=== PATIENT | male | born 1960 | race Caucasian/White ===

== ENCOUNTER 2016-09-24 15:14 | Emergency (ER) | payer OTHER ==
[2016-09-24 15:31] VITALS: BP 145/66
--- OUTSIDE RECORDS SUMMARY | 2016-09-24 15:41 | XMS REPORT | Continuity of Care Document ---
:1960 Author Organization [employer] [place] [address] Care Team Providers Name Role Phone Jared Antoine Primary Care Provider [phone] Source Comments This disclosure is being made pursuant to the [employer] program and maynot contain all information available regarding this patient.[facility] Active Allergies and Adverse Reactions No Known Allergies Current Medications Be aware that medications may not be up to date as of this document. Alwaysverify current medications with the patient. Prescription Sig. Disp. Refills Start Date End Date Status Insulin Lispro, Inject 20-30 Active Human, (HUMALOG Units into the KWIKPEN) 100 skin 2 (two) UNIT/ML SOPN times daily. injection - pen aspirin 81 MG EC Take 81 mg by Active tablet mouth daily. albuterol (PROAIR Inhale 2 puffs Active HFA;PROVENTIL into the lungs HFA;VENTOLIN HFA) daily as 108 (90 BASE) needed for MCG/ACT inhaler Wheezing. Insulin Use twice per 100 each 0 05/18/2016 Active Syringe-Needle day. U-100 (INSULIN SYRINGE 1CC/31GX5/16") 31G X 5/16" 1 ML MISC ibuprofen Take 400 mg by Active (ADVIL,MOTRIN) 200 mouth. MG tablet traMADol (ULTRAM) Take 1 tablet 30 tablet 0 06/03/2016 Active 50 MG tablet by mouth daily as needed for Pain. lisinopril TAKE 1 TABLET 28 tablet 0 07/20/2016 Active (PRINIVIL,ZESTRIL) BY MOUTH TWICE 20 MG tablet DAILY LEVEMIR 100 UNIT/ML INJECT 88 50 mL 0 08/04/2016 Active injection - vial UNITS INTO THE SKIN TWICE DAILY glucose blood Patient tests 100 each 2 08/11/2016 Active (FREESTYLE LITE) three times test strip daily budesonide-formoter Inhale 2 puffs 10.2 g 0 08/11/2016 Active ol (SYMBICORT) into the lungs 160-4.5 MCG/ACT 2 (two) times inhaler daily. lisinopril TAKE 1/2 14 tablet 0 08/18/2016 Active (PRINIVIL,ZESTRIL) TABLET BY 40 MG tablet MOUTH TWICE DAILY mometasone-formoter Inhale 2 puffs 13 g 0 08/25/2016 Active ol (DULERA) 100-5 into the lungs MCG/ACT AERO 2 (two) times inhaler daily. fenofibrate TAKE 1 30 tablet 0 09/21/2016 Active (TRICOR) 145 MG TABLET(145 MG) tablet BY MOUTH EVERY DAY metformin TAKE 1 TABLET 60 tablet 0 09/24/2016 Active (GLUCOPHAGE) 1000 BY MOUTH TWICE MG tablet DAILY WITH MEALS atorvastatin TAKE 1 TABLET 30 tablet 0 09/24/2016 Active (LIPITOR) 20 MG BY MOUTH EVERY tablet DAY metoprolol tartrate TAKE 1 TABLET 30 tablet 0 09/24/2016 Active (LOPRESSOR) 100 MG BY MOUTH EVERY tablet DAY atorvastatin Take 1 tablet 30 tablet 0 08/11/2016 09/23/2016 Discontinued (LIPITOR) 20 MG by mouth tablet daily. metformin Take 1 tablet 60 tablet 0 08/11/2016 09/23/2016 Discontinued (GLUCOPHAGE) 1000 by mouth 2 MG tablet (two) times daily with meals. metoprolol tartrate TAKE 1 TABLET 30 tablet 0 08/18/2016 09/23/2016 Discontinued (LOPRESSOR) 100 MG BY MOUTH EVERY tablet DAY fenofibrate TAKE 1 30 tablet 0 08/18/2016 09/21/2016 Discontinued (TRICOR) 145 MG TABLET(145 MG) tablet BY MOUTH EVERY DAY Active Problems Problem Noted Date Type 2 diabetes mellitus (HCC) 04/27/2016 Chronic obstructive pulmonary disease (HCC) 04/27/2016 Benign essential HTN 04/27/2016 Type 2 diabetes mellitus with diabetic polyneuropathy, with long-term 2015 current use of insulin (HCC) Most Recent Encounters Date Type Specialty Providers Description 09/23/2016 Refill Family Medicine Jared Antoine MD 09/21/2016 Refill Family Medicine Jared Antoine MD 08/26/2016 Scanned Document Family Jared Menezes MD 08/25/2016 Refill Family Medicine Vi Cardozo RN 08/20/2016 Scanned Document Family Jared Menezes MD 08/19/2016 Scanned Document Family Jared Menezes MD 08/19/2016 Scanned Document Family Jared Menezes MD 08/18/2016 Refill Family Jared Menezes MD 08/13/2016 Telephone Family Medicine Ignacia Taylor, Paperwork [employer] 08/11/2016 Refill Family Medicine Ignacia Taylor, [employer] 08/03/2016 Refill Family Medicine Jared Antoine MD Type 2 diabetes mellitus with other specified complication (HCC) 07/31/2016 Scanned Document Family Jared Menezes MD 07/31/2016 Telephone Family Medicine Vi Cardozo Fyi RN 07/18/2016 Refill Family Jared Menezes MD 07/16/2016 Refill Family Medicine Jared Antoine MD 07/16/2016 Scanned Document Family Jared Menezes MD 07/13/2016 Scanned Document Family Jared Menezes MD 07/13/2016 Refill Family Medicine Jared Antoine MD Immunizations Name Dates Previously Given Next Due INFLUENZA, INACTIVATED, QUADRIVALENT, 3 YEARS AND 03/05/2016 older, single dose syringe/vial Social History Tobacco Use Types Packs/Day Years Used Date Former Smoker 2 6 Smokeless Tobacco: Never Used Alcohol Use Drinks/Week oz/Week Comments No Last Filed Vital Signs Vital Sign Reading Time Taken Blood Pressure 124/82 06/03/2016 2:50 PM [facility] Pulse 80 06/03/2016 2:50 PM [facility] Temperature 36.1 C (97 F) 06/03/2016 2:50 PM [facility] Respiratory Rate 18 06/03/2016 2:50 PM [facility] Height 1.83 m (6' 0.05") 06/03/2016 2:50 PM [facility] Weight 152.862 kg (337 lb) 06/03/2016 2:50 PM [facility] Body Mass Index 45.65 06/03/2016 2:50 PM [facility] Oxygen Saturation - - Plan of Care Patient Goal Type Goal Blood Pressure Blood Pressure below 140/90 Result Component HEMOGLOBIN A1C below 7.0 Health Maintenance Due Date Last Done Comments Hepatitis C Screening 1979 Pneumococcal Medium Risk 19-64 yo (1 of 1 - PPSV23) 1980 Tetanus/Pertussis (1 - Tdap) 1980 Well Adult Visit 2011 LAB-HgA1C 10/26/2016 04/27/2016 Lab-Lipids 10/30/2016 05/01/2016 Foot Exam 04/27/2017 04/27/2016 Lab-Urine Microalbumin 05/01/2017 05/01/2016 Eye (Ophthalmology) Exam 05/16/2018 05/16/2016 Colonoscopy 04/10/2024 04/10/2014 Influenza Immunization Completed 03/05/2016 Results from Last 3 Months Not on file
--- OUTSIDE RECORDS SUMMARY | 2016-09-24 15:42 | XMS REPORT | Continuity of Care Document ---
:1960 Author Organization [facility] ([facility]) Address [address] [place] [address] Phone [phone] Care Team Providers Name Role Phone Jared Antoine Primary Care Provider [phone] Source Comments This disclosure is being made pursuant to the Care Everywhere program, applicable federal and state laws, and may not contain all informaitonavailable regarding this patient.[facility] ([facility]) Active Allergies and Adverse Reactions Allergen Noted Date Severity Reactions Comments Sulfamethoxazole 07/03/2016 Nausea & Vomiting,Angioedema,Rash Current Medications Prescription Sig. Disp. Refills Start End Status Date Date metFORMIN 1,000 mg Take 1,000 mg by Active tablet mouth 2 times daily with meals. fenofibrate 145 mg Take 145 mg by Active tablet mouth daily. budesonide-formoter Use 2 Puffs by Active ol (SYMBICORT) inhalation 2 times 160-4.5 daily. mcg/Actuation inhaler albuterol 90 Use 2 Puffs by Active mcg/Actuation inhalation every 4 inhaler hours as needed. gabapentin 300 mg Take 2 capsules 90 capsule 3 Active capsule (600 mg total) by 7 mouth 3 times daily. SUPPLY FREESTYLE Patient tests Active LITE test strips three times daily 7 metoPROLol tartrate Take 100 mg by Active 100 mg tablet mouth daily. docusate 100 mg Take 1 capsule 60 capsule 0 Active capsule (100 mg total) by 7 mouth 2 times daily as needed. aspirin 325 mg Take 1 tablet (325 42 tablet 0 Active tablet mg total) by mouth 7 daily. acetaminophen 325 Take 2 tablets 80 tablet 0 Active mg tablet (650 mg total) by 7 mouth every 4 hours as needed. cyclobenzaprine 10 Take 1 tablet (10 40 tablet 0 Active mg tablet mg total) by mouth 7 every 8 hours as needed. HYDROmorphone 2 mg Take 1-2 tablets 80 tablet 0 Active tablet (2-4 mg total) by 7 mouth every 4 hours as needed. ertapenem (INVanz) Inject 1,000 mg 7 Each 5 Active 1,000 mg IV bag intravenously 7 every 24 hours. furosemide 40 mg Take 1 tablet (40 30 tablet 0 Active tablet mg total) by mouth 7 daily. insulin detemir Inject 40 Units 10 mL 0 Active (LEVEMIR) 100 subcutaneously 2 7 unit/mL injection times daily. vial insulin lispro Inject 12 Units 10 mL 0 Active (HumaLOG) 100 subcutaneously 3 7 unit/mL injection times daily with vial meals. insulin lispro Inject 2-10 Units 10 mL 0 Active (HumaLOG) 100 subcutaneously 3 7 unit/mL injection times daily with vial meals. Give based on glucose results. GLUCOSE LEVEL (mg/dl): 150-199 give 2 units, 200-249 give 4 units, 250-299 give 6 units, 300-349 give 8 units,350-399 give 10 units, 400 or greater - Call Physician. sodium chloride 0.9 Inject 10 mL 500 mL 1 Active % injection syringe intravenously as 7 needed for Other (For PICC line flush per Protocol (Flush PICC weekly if not accessed) ). sodium chloride 0.9 Inject 20 mL 500 mL 1 Active % injection syringe intravenously as 7 needed for Other (For PICC line flush with blood draws and TPN per Protocol). DAPTOmycin Inject 900 mg 7 Each 5 Active (CUBICIN) 500 mg intravenously 7 injection once. atorvastatin 20 mg Take 20 mg by Discontinued tablet mouth every 017 evening. lisinopril 20 mg Take 20 mg by Discontinued tablet mouth 2 times 017 daily. metoPROLol Take 100 mg by Discontinued succinate 100 mg XL mouth daily. 017 tablet insulin detemir Inject 88 Units Discontinued (LEVEMIR) 100 subcutaneously 2 017 unit/mL injection times daily. vial aspirin 325 mg Take 1 tablet (325 42 tablet 0 Discontinued tablet mg total) by mouth 7 017 daily. docusate 100 mg Take 1 capsule 60 capsule 0 Discontinued capsule (100 mg total) by 7 017 mouth 2 times daily as needed. morpHINE 15 mg CR Take 1 tablet (15 60 tablet 0 Discontinued tablet mg total) by mouth 7 017 2 times daily. hydrOXYzine HCl 25 Take 1-2 tablets 80 tablet 1 Discontinued mg tablet (25-50 mg total) 7 017 by mouth every 4 hours as needed. oxyCODONE-acetamino Take 1 tablet by 40 tablet 0 Discontinued phen 5-325 mg per mouth every 6 7 017 tablet hours as needed for Pain. Do NOT exceed 4000 mg of acetaminophen per 24 hours. cephalexin 500 mg Take 1 capsule 40 capsule 0 capsule (500 mg total) by 7 017 mouth 4 times daily for 10 days. HYDROcodone-acetami Take 1-2 tablets 60 tablet 0 Discontinued nophen 5-325 mg per by mouth every 6 7 017 tablet hours as needed for Pain. Earliest Fill Date: 08/25/16 cephalexin 500 mg Take 1 capsule 40 capsule 0 Discontinued capsule (500 mg total) by 7 017 mouth 4 times daily for 10 days. For 10 days. oxyCODONE-acetamino Take 1-2 tablets 60 tablet 0 Discontinued phen 5-325 mg per by mouth every 4 7 017 tablet hours as needed for Pain. Do NOT exceed 4000 mg of acetaminophen per 24 hours. hydrOXYzine pamoate Take 1-2 capsules 80 capsule 1 Discontinued 25 mg capsule (25-50 mg total) 7 017 by mouth every 4 hours as needed for muscle spasms docusate 100 mg Take 1 capsule 60 capsule 0 Discontinued capsule (100 mg total) by 7 017 mouth 2 times daily as needed. cephalexin 500 mg Take 1 capsule 56 capsule 0 Discontinued capsule (500 mg total) by 7 017 mouth 4 times daily for 14 days (until gone) HYDROcodone-acetami Take 1-2 tablets 60 tablet 0 Discontinued nophen 5-325 mg per by mouth every 6 7 017 tablet hours as needed for Pain. aspirin 81 mg EC Take 243 mg by Discontinued tablet mouth daily. 017 Patient is using 3 x 81 mg EC aspirin daily insulin lispro Inject Discontinued (HumaLOG) 100 subcutaneously 3 017 unit/mL injection times daily before vial meals. Sliding scale, starting at FBS 150 for every 20 patient takes 2 units of humalog (FBS 180=4 units) lisinopril 40 mg Take 20 mg by Discontinued tablet mouth 2 times 017 daily. doxycycline hyclate Take 1 capsule 84 capsule 0 Discontinued 100 mg capsule (100 mg total) by 7 017 mouth every 12 hours. DAPTOmycin Inject 900 mg 7 Each 5 Discontinued (CUBICIN) 500 mg intravenously 7 017 injection once. DAPTOmycin Inject 900 mg 7 Each 5 Discontinued (CUBICIN) 500 mg intravenously 7 017 injection once. Active Problems Problem Noted Date Infection of right below knee amputation 09/18/2016 Acute kidney injury 09/15/2016 Hyperkalemia 09/15/2016 Post-operative infection 09/11/2016 Hx of right BKA 08/14/2016 Acute blood loss anemia 07/22/2016 Charcot foot due to diabetes mellitus 07/21/2016 Musculoskeletal leg pain 07/21/2016 Essential hypertension 07/14/2016 COPD (chronic obstructive pulmonary disease) 07/14/2016 Foot ulcer due to secondary DM 05/24/2016 Acute osteomyelitis of right foot 05/24/2016 Type 2 diabetes mellitus 05/24/2016 Morbid obesity 05/24/2016 Degeneration of intervertebral disc, site unspecified 09/05/1999 Most Recent Encounters Date Type Specialty Providers Description 09/22/2016 Telephone Breezy Rosario MD 09/22/2016 Telephone Breezy Rosario Chief Comp: Felicity Armendariz MD 09/22/2016 Orders/Notes Eusebio Infectious Arlene Rose Disease 09/21/2016 Nurse Triage Care Coordination Sherie Hoffman Chief Comp: VALENTINE Navarrete sports psychologist Follow-up Call 09/21/2016 Telephone Eusebio Infectious Arlene Rose, Dx: Chronic Disease osteomyelitis of right tibia (Primary Dx) 09/16/2016 Surgery General Surgery DANNY Guillen/DEBRIDMAIDA Marte MD T KNEE 09/15/2016 Anesthesia Event General Surgery Chandler Cabrera R, VALVE INSERTER 09/15/2016 Surgery Cardiology Jules Xavier Picc Reposition MD Raghav 09/14/2016 Office Visit Breezy Rosario Chief Comp: Patient Marcello, MD Reported Reason For Visit 09/14/2016 Anesthesia Event General Surgery Breezy Gale G, VALVE INSERTER 09/14/2016 Surgery General Surgery Breeyz Key IRRIGATION/DEBRIDEMEN MD Brian Armendariz LOWER LEG 09/11/2016 [facility] Breezy Key Dx: Post-operative - Encounter Inpatient - Adult MD Marcello infection (Primary 09/18/2016 Jules Xaiver Dx) MD Mindy Avilez Heather R, MD 09/11/2016 Office Visit Breezy Rosario Dx: Post-operative MD Marcello infection (Primary Dx) 09/11/2016 Telephone Breezy Rosario MD 09/09/2016 Telephone Patient Services Sheldon Celaya Chief Comp: Martine Silva RN Only 09/09/2016 Telephone Breezy Rosario Dx: Pain in joint, MD Marcello ankle and foot, unspecified laterality (Primary Dx) 09/07/2016 Nurse Triage General [facility] Robert, Chief Comp: IP Inpatient - Adult Sarah Marte RNsports psychologist Follow-up Call 09/07/2016 Pharmacy Visit 09/05/2016 Pharmacy Visit 09/04/2016 [facility] Breezy Key Dx: Hx of right BKA - Encounter Inpatient - Adult MD Marcello (Primary Dx) 09/05/2016 09/04/2016 Anesthesia Event General Surgery Tea Coleman MD 09/04/2016 Surgery General Surgery Breezy Key AMPUTATION LEG Marcello, REVISION 09/03/2016 Office Visit Breezy Rosario Dx: Hx of right MIKAL Armendariz MD (Primary Dx) 08/25/2016 Refill Breezy Rosario Dx: Pain in joint, MD Marcello ankle and foot, unspecified laterality (Primary Dx) 08/19/2016 Office Visit Breezy Rosario Dx: Status post below MD Marcello knee amputation of right lower extremity (Primary Dx) 08/19/2016 Telephone Breezy Rosario MD 08/18/2016 Nurse Triage Patient Services Lorenzo Mi Chief Comp: Patient L, RN Concern 08/17/2016 Orders/Notes Orthopaedic Gina Burns, Dx: Hx of right BKA SACHA (Primary Dx) 08/14/2016 Office Visit Dermatology Brandon Sainz, Dx: Hyperkeratosis of MD skin 08/14/2016 Office Visit Orthopaedic Breezy Key Dx: Muscle spasm MD Marcello (Primary Dx) Gina Burns PA-C 08/03/2016 Telephone Breezy Rosario MD 07/25/2016 Pharmacy Visit 07/21/2016 [facility] Breezy Key Dx: Musculoskeletal - Encounter Inpatient - Adult MD Marcello leg pain, right 07/25/2016 (Primary Dx) 07/21/2016 Surgery General Surgery Breezy Key AMPUTATION LEG BELOW MD Marcello KNEE 07/14/2016 Office Visit Internal Medicine - Default, Other Dx: Morbid obesity Specialty Billg - Defo due to excess Velur, calories (Primary Dx) MD Noemi ([id number]), Msc Surg Co-Managemnt Cl 07/07/2016 Telephone Breezy Rosario MD 07/07/2016 Orders/Notes Orthopaedic Bruno Quintanilla Dx: Musculoskeletal MD Meghan leg pain, right (Primary Dx) 07/07/2016 Telephone Breezy Rosario Chief Comp: Patient Marcello, MD Concern 07/03/2016 [facility] Anesthesiology [facility], Dx: Diabetes Encounter Layla Pineda MD mellitus, insulin dependent (IDDM), controlled (Primary Dx) 07/03/2016 Office Visit Breezy Rosario Dx: Foot ulcer, right MD Marcello (Primary Dx) 07/03/2016 Anesthesia Event General Surgery Avi Guido Immunizations Name Dates Previously Given Next Due Pneumococcal Polysaccharide, PPSV23 (Pneumovax 23) 05/25/2016 Social History Tobacco Use Types Packs/Day Years Used Date Former Smoker Cigarettes 2 30 Quit: 05/05/2010 Smokeless Tobacco: Never Used Tobacco Cessation:Counseling Given: Yes Comments: Alcohol Use Drinks/Week oz/Week Comments No Last Filed Vital Signs Vital Sign Reading Time Taken Blood Pressure 122/59 09/18/2016 9:00 AM CDT Pulse 84 09/18/2016 9:00 AM CDT Temperature 36.1 C (97 F) 09/18/2016 9:00 AM CDT Respiratory Rate 16 09/18/2016 1:48 PM CDT Height 1.829 m (6') 09/11/2016 6:33 PM [facility] DI[facility]PART[facility] Weight 157.852 kg (348 lb) 09/11/2016 6:33 PM DIRECTOR DIETETICS DEPARTMENT Body Mass Index 47.19 09/11/2016 6:33 PM DIRECTOR DIETETICS DEPARTMENT Oxygen Saturation 94% 09/18/2016 9:00 AM CDT Plan of Care Date Type Specialty Providers Description 10/08/2016 Appointment Orthopaedic Breezy Key, Chief Comp: Patient MD Reported Reason For [address] [place] [address] [phone] (Fax) 10/08/2016 Appointment Med Infectious Disease Arlene Rose MD Chief Comp: Patient [address] [place] [address] Visit [phone] (Fax) Health Maintenance Due Date Last Done Comments HCV Screening 1960 Hepatitis B Vaccine (1 of 3 - Primary Series) 1960 Tdap Vaccine 1972 DIABETIC: Cholesterol 1979 Diabetic: Hdl 1979 Diabetic: Ldl 1979 DIABETIC: Microalbumin 1979 DIABETIC: Triglycerides 1979 MMR Vaccine 1979 Td Vaccine 1979 Colonoscopy 2011 Prostate Cancer Screening 2011 Influenza Vaccine: Seasonal (#1) 02/03/2016 DIABETIC: Foot Exam 05/24/2016 DIABETIC: Retinal Eye Exam 05/24/2016 DIABETIC: Hemoglobin A1C 11/21/2016 05/24/2016 Pneumococcal Vaccine Completed 05/25/2016 Procedures from Last 3 Months Procedure Name Priority Date/Time Associated Comments Diagnosis ABSTRACTED BY Routine 09/17/2016 1:01 PM Post-operative Results for this BILLING STAFF CDT infection procedure are in the results section. ABSTRACTED BY Routine 09/17/2016 12:00 PM Post-operative Results for this BILLING STAFF CDT infection procedure are in the results section. IRRIGATION/DEBRIDEME 09/16/2016 7:30 AM Post-operative NT KNEE CDT infection Case Notes I&D; ossilating saw available for possible revision; wound vac basket available IRRIGATION/DEBRIDEMENT LOWER 09/14/2016 Post-operative LEG 8:45 AM CDT infection ABSTRACTED BY BILLING STAFF Routine 09/09/2016 Hx of right BKA Results for 4:58 PM DIRECTOR DIETETICS DEPARTMENT this procedure are in the results section. AMPUTATION LEG REVISION 09/04/2016 Hx of right BKA 4:00 PM DIRECTOR DIETETICS DEPARTMENT ABSTRACTED BY BILLING STAFF Routine 07/22/2016 Musculoskeletal leg Results for 5:56 AM DIRECTOR DIETETICS DEPARTMENT pain, right this procedure are in the results section. AMPUTATION LEG BELOW KNEE 07/21/2016 Musculoskeletal leg 8:15 AM DIRECTOR DIETETICS DEPARTMENT pain, right Results from Last 3 Months EXTERNAL CREATINE KINASE (CK) (09/22/2016) Component Value Range Ext Creatine Kinase 116 40-200 U/L EXTERNAL SEDIMENTATION RATE, (ESR) (09/21/2016) Component Value Range Ext Sedimentation Rate >120 0-15 MM/HR EXTERNAL TOTAL PROTEIN (09/21/2016) Component Value Range Ext Total Protein 6.7 6.0-8.0 G/DL EXTERNAL HEPATIC PANEL (09/21/2016) Component Value Range Ext AST 18 0-37 U/L Ext ALT 18 0-35 U/L Ext Bilirubin, Direct 0.1 0-0.2 MG/DL Ext Bilirubin, Total 0.3 0.2-1.0 MG/DL Ext ALP 88 40-129 U/L Ext Albumin 3.1(A) 3.4-4.8 G/DL EXTERNAL CHEM 7 (09/21/2016) Component Value Range Ext Glucose 175(A) 65-99 MG/DL Ext Creatinine 1.21 0.7-1.4 MG/DL Ext BUN 21(A) 10-20 MG/DL Ext CO2 30.7 24-32 MEQ/L Ext Chloride 101 95-107 MEQ/L Ext Potassium 4.7 3.5-5.0 MEQ/L Ext Sodium 143 135-145 MEQ/L EXTERNAL CALCULATED GFR (09/21/2016) Component Value Range Ext Calculated GFR 66 EXTERNAL ANION GAP (09/21/2016) Component Value Range Ext Anion Gap 15.0 EXTERNAL CALCIUM (09/21/2016) Component Value Range Ext Calcium 8.7 6-13 MG/DL EXTERNAL C-REACTIVE PROTEIN (CRP) (09/21/2016) Component Value Range Ext CRP 6.1 <0.5 MG/DL EXTERNAL CBC WITH DIFFERENTIAL (09/21/2016) Component Value Range Ext WBC Count 8.9 K/MM3 Ext RBC Count 2.86 M/MM3 Ext Hemoglobin 8.2 G/DL Ext Hematocrit 25.4 % Ext MCV (Mean Corpuscular Volume) 88.8 Ext MCH-Mean Corpuscular Hemoglobin 28.7 Ext MCHC-Mean Corpuscular Hgb Concentration 32.3 Ext Platelet Count 497 1-1001 K/MM3 Ext RDW-Red Cell Distribution Width 13.7 Ext Neutrophils 6100 100-50522 /MM3 Ext Lymphocytes 1600 100-46373 /MM3 Ext Monocytes 800 0-5000 /MM3 Ext Eosinophils 200 0-5000 /MM3 Ext Basophils 100 0-1000 /MM3 Ext % Neutrophils 69.1 % Ext % Lymphs 18.2 % Ext % Monocytes 8.6 % Ext % Eosinophils 2.7 % Ext % Basophils 0.7 % BLOOD GLUCOSE, BEDSIDE (09/18/2016 11:17 AM)Only the most recent of48 resultswithin the time period is included. Component Value Range Glucose, Accu-Chek 166(H) 65-99 mg/dL Specimen Blood, capillary CORTISOL, PLASMA (09/18/2016 9:56 AM)Only the most recent of4 resultswithin the time period is included. Component Value Range Cortisol, Plasma 27.0Comment: g/dL New assay ([employer] Cortisol II) introduced 08/11/2016. Reference ranges: AM (6-10):6.0 - 18.4 g/dL PM (3-5): 2.7 - 10.5 g/dL Timing of sample collection must be taken into account when interpreting results due to cortisol secretion circadian rhythms. Cortisol assay has no cross-reactivity with dexamethasone and low cross- reactivity with prednisone, prednisolone, and 6-methylprednisolone.Patients treated with prednisone, prednisolone, and 6-me thylprednisolone (especially higher doses) may show falsely elevated concentrations of cortisol.Patients with 21-hydroxylase deficiency may have elevated 21-deoxycortisol levels that can give rise to falsely elevated cortisol results.See Laboratory Handbook for more details. ([email or web address].[email or web address]/path_handbook/index.html) Specimen Blood POTASSIUM (09/18/2016 8:52 AM)Only the most recent of7 resultswithin the time period is included. Component Value Range Potassium 4.4 3.5-5.0 mEq/L Specimen Blood CREATININE (09/18/2016 8:52 AM)Only the most recent of5 resultswithin the time period is included. Component Value Range Creatinine 1.0Comment: 0.6-1.2 mg/dL Creatinine switched to enzymatic method on 11/11/2010.GFR equation switched to IDMS-traceable MDRD equation on 11/11/2010. Calculated GFR values are not valid in clinical settings where serum creatinine is changing. Calculated GFR 78 >60 mL/min/1.73 m2 Specimen Blood ADRENOCORTICOTROPIC HORMONE (09/18/2016 8:06 AM) Component Value Range ACTH 30 7-63 pg/mL Specimen Blood DIFFERENTIAL (09/18/2016 3:55 AM)Only the most recent of7 resultswithin the time period is included. Component Value Range % Neutrophils-Auto Diff 68.1 % Neutrophils-Auto Diff 6140 8663-9345 /MM3 % Lymphocytes-Auto Diff 18.7 % Lymphocytes-Auto Diff 0520 570-4612 /MM3 % Monocytes-Auto Diff 9.7 % Monocytes-Auto Diff 870(H) 130-860 /MM3 % Eosinophils-Auto Diff 2.2 % Eosinophils-Auto Diff 200 40-390 /MM3 % Basophils 0.6 % Basophils-Auto Diff 50 10-136 /MM3 % Immature Granulocytes-Auto Diff 0.7 % Immature Granulocytes-Auto Diff 60 /MM3 Specimen Whole Blood CBC (COMPLETE BLOOD COUNT) (09/18/2016 3:55 AM)Only the most recent of7 resultswithin the time period is included. Component Value Range WBC Count 9.0 3.7-10.5 K/MM3 RBC Count 2.68(L) 4.50-6.20 M/MM3 Hemoglobin 7.6(L) 13.2-17.7 g/dL Hematocrit 24(L) 40-52 % MCV (Mean Corpuscular Volume) 89 82-99 FL MCH (Mean Corpuscular Hemoglobin) 28 25-35 PG MCHC (Mean Corpuscular Hemoglobin Concentration) 32 32-36 % Platelet Count 362 150-400 K/MM3 MPV (Mean Platelet Volume) 8.7(L) 9.4-12.3 FL RBC Dist Width-STD 46.1(H) 35.1-43.9 FL RBC Distrib Width 14.1 9.0-14.5 % Nucleated RBC 0 /100 WBC Specimen Whole Blood CREATINE KINASE (09/18/2016 3:55 AM)Only the most recent of4 resultswithin the time period is included. Component Value Range Creatine Kinase 250 39-308 U/L Specimen Blood CBC WITH DIFFERENTIAL (09/18/2016 3:55 AM)Only the most recent of7 resultswithin the time period is included. Specimen Whole Blood Narrative The following orders were created for panel order CBC WITH DIFFERENTIAL. Procedure Abnormality Status --------- ------ CBC (COMPLETE BLOOD COUNT)[[id number]] AbnormalFinal result DIFFERENTIAL[[id number]] AbnormalFinal result Please view results for these tests on the individual orders. BASIC METABOLIC PANEL W/ CALCIUM (CHEM 8) (09/18/2016 3:55 AM)Only the most recent of9 resultswithin the time period is included. Component Value Range Sodium 140 135-145 mEq/L Potassium 4.9 3.5-5.0 mEq/L Chloride 99 95-107 mEq/L CO2 29 22-29 mEq/L Anion Gap 12 8-18 mEq/L BUN 18 10-20 mg/dL Creatinine 1.2Comment: 0.6-1.2 mg/dL Creatinine switched to enzymatic method on 11/11/2010.GFR equation switched to IDMS-traceable MDRD equation on 11/11/2010. Calculated GFR values are not valid in clinical settings where serum creatinine is changing. Glucose 181(H)Comment: 65-99 mg/dL The Expert Committee on the Diagnosis and Classification of Diabetes has defined impaired fasting glucose as greater than or equal to 100 mg/dL but less than 126 mg/dL.(Diabetes Care 28 (Suppl 1)S41,2005) Calcium 8.5 8.5-10.5 mg/dL Calculated GFR 63 >60 mL/min/1.73 m2 Specimen Blood ALDOSTERONE, SERUM (09/17/2016 4:35 PM) Component Value Range Aldosterone, Serum 4.3Comment: ng/dL INTERPRETIVE INFORMATION: Aldosterone, Serum Reference intervals for age 15 and older: Upright .........4.0 - 31.0 ng/dL Supine ..........Less than or equal to 16.0 ng/dL Unspecified .....Less than or equal to 31.0 ng/dL Normal serum levels of aldosterone are dependent on the sodium intake and whether the patient is upright or supine. High sodium intake will tend to suppress serum aldosterone, whereas low sodium intake will elevate serum aldosterone. The reference intervals for serum aldosterone are based on normal sodium intake. Access complete set of age- and/or gender-specific reference intervals for this test in the [facility] ([facility]). Performed by [facility], [facility] [address] [email or web address], Geronimo Salas MD, Lab. Director Specimen Blood Narrative Specimen Source: Specimen Start Date: RENIN ACTIVITY (09/17/2016 4:35 PM) Component Value Range Renin Activity (ng/mL/hr) 20.0Comment: ng/mL/hr INTERPRETIVE INFORMATION: Renin Activity Adult, Normal sodium diet: Supine ................. 0.2-1.6 ng/mL/hr Upright ................ 0.5-4.0 ng/mL/hr Children, Normal sodium diet, Supine: [place] (1-7 days) ..... 2.0-35.0 ng/mL/hr Cord blood ............. 4.0-32.0 ng/mL/hr 1-12 mos ............... 2.4-37.0 ng/mL/hr 13 mos-3 yrs ........... 1.7-11.2 ng/mL/hr 4-5 yrs ................ 1.0- 6.5 ng/mL/hr 6-10 yrs ............... 0.5- 5.9 ng/mL/hr 11-15 yrs .............. 0.5- 3.3 ng/mL/hr Children, normal sodium diet, Upright: 0-3 yrs ................ Not Available 4-5 yrs ................ Less than or equal to 15 ng/mL/hr 6-10 yrs ............... Less than or equal to 17 ng/mL/hr 11-15 yrs .............. Less than or equal to 16 ng/mL/hr Plasma renin activity measures enzyme ability to convert angiotensinogen to angiotensin I and is limited by the availability of angiotensinogen. Plasma renin activity is not an accurate indicator of enzyme activity when angiotensinogen is decreased. See Compliance Statement D: [email or web address] Performed by [facility], [address] [place] [id number] [email or web address], Geronimo Salas MD, Lab. Director Specimen Blood Narrative Specimen Source: Specimen Start Date: [id number] ORT OR CASE (09/17/2016 1:01 PM) Narrative Valeria Guillen MD 09/17/20161:01 PM OR CASE: IRRIGATION/DEBRIDEMENT KNEE Post-Op Procedure Note Operation/Procedure: Procedure(s) (LRB): IRRIGATION/DEBRIDEMENT KNEE (Right) General Information: Date: 09/16/16 Time: 729 Location: MAIN OR OR Room: [facility] OR Service: Orthopaedics Log ID: [id number] Surgeon: Surgeon(s) and Role: * Valeria Guillen MD - Primary * Donavon Landaverde MD - Resident - Assisting * Bela Hudson MD - Resident - Assisting * Dana Villalta MD - Resident - Assisting Staff Information: Scrub Nurse: Alka Vuong RN Circulating Nurse: Katharine Hilario RN Laundry Equipment Operator- Scrub: Spencer Shi Anesthesia: General Findings: No unexpected findings, see below. Blood Loss: less than 50 ml Implants: * No implants in log * Specimens: ID Type Source Tests Collected by Time Destination A : right tibia #1 Microbiology Tissue, specify ANAEROBIC CULTURE, AEROBIC CULTURE, ROUTINE Valeria Guillen MD 09/16/2016900 B : right tibia #2 Microbiology Tissue, specify ANAEROBIC CULTURE, AEROBIC CULTURE, ROUTINE Valeria Guillen MD 09/16/2016900 Complications: None; patient tolerated the procedure well. Condition: PACU - hemodynamically stable. Return to the OR planned in the next 30 days? No Readmission planned in the next 30 days? No BMI=47.19 kg/(m^2) (as of 09/11/16) Operative Report Completion Pre-op Diagnosis: * Post-operative infection [T81.4XXA] Post-op Diagnosis: Same Procedure: Irrigation and Debridement, revision right Below knee amputation and primary closure Indications/Procedure Details: Miko Aguero is a 56 y.o. male with a history of R BKA with surgical site infection. He was indicated for return to OR for irrigation and debridement, possible revision and definitive closure. We had a discussion with the patient regarding the risks and benefits of proceeding with surgery including the risk of infection, bleeding, injury to local structures including neurovascular structures, wound complications, continued pain, heart attack, stroke, . Patient elected to proceed and signed informed surgical consent. The patient was identified on the floor. The operative extremity was marked. His consent was reviewed. He was brought by the anesthesia team the operative suite and placed supine on the operating table and all pertinent bony prominences were padded. General anesthesia was induced. His right leg was prepped and draped in the normal sterile fashion. Antibiotics were given. A multidisciplinary timeout was called and all in attendance were in agreement that we had the correct patient, site, side, and procedure. We then began the operation. The wound vac and 8 antibiotic beads were removed.The surgical site was debrided sharply with a scalpel and with curetttes; no gross purulence or abscesses were encountered.Two cultures about the distal tibia were obtained.The posterior flap was sharply debrided to remove excess scar tissue and devitalized muscle.The distal tibia cut was revised with an oscillating saw such that it was satisfactorily smooth. The wound was then irrigated with 9L sterile NS. The wound was closed in a layered fashion with 0 PDS, 2-0 PDS and prolene.The wound was dressed with xeroform, 4x4s, ABDs, Kerlix and Hamilton wrap. The patient was awakened from anesthesia without event and transferred to the PACU in stable condition. Disposition: Admitted Attending Attestation: Valeria Guillen MD was present for zarco portions of the procedure defined as, and was immediately available for the remainder of the procedure. The zarco portions are defined as: Wound evaluation and closure planning. I was present for the zarco portions as described above and agree with the findings and description as documented above. Valeria Guillen MD Department of Orthopaedics & Rehabilitation [phone] Bela Hudson MD ORT OR CASE (09/17/2016 12:00 PM) Narrative Breezy Key MD 09/17/2016 12:00 PM OR CASE: IRRIGATION/DEBRIDEMENT LOWER LEG Post-Op Procedure Note Operation/Procedure: Procedure(s) (LRB): IRRIGATION/DEBRIDEMENT LOWER LEG (Right) General Information: Date: 09/14/16 Time: 844 Location: MAIN OR [place] Room: [place] [address] Service: Orthopaedics Log ID: [id number] Surgeon: Surgeon(s) and Role: * Breezy Key MD - Primary * Bela Hudson MD - Resident - Assisting Staff Information: Scrub Nurse: Jerzy Tapia RN Circulating Nurse: Alie Gilman RN Wardrobe Coordinator RN/Preceptee: Aminta Mcbride RN Anesthesia: General Findings: No unexpected findings, see below. Blood Loss: less than 50 ml Implants: Implant Name Type Inv. Item Serial No. Home [employer] Service Cleaner Lot No. LRB No. Used Action CEMENT HIGH VISCOSITY 40/20 [employer] - [id number] HIGH VISCOSITY 40/20 [employer]BALTBI[employer]INC [id number] Right 1 Implanted CEMENT HIGH VISCOSITY 40/20 [employer] - [id number] CEMENT HIGH VISCOSITY 40/20 [employer] [id number] Right 1 Implanted Specimens: ID Type Source Tests Collected by Time Destination A : right tibia #1 Microbiology Wound, Intra-Operative ANAEROBIC CULTURE Breezy Key MD 09/14/2016926 B : right tibia #2 Microbiology Wound, Intra-Operative ANAEROBIC CULTURE Breezy Key MD 09/14/2016927 C : right tibia #3 Microbiology Wound, Intra-Operative ANAEROBIC CULTURE Breezy Key MD 09/14/2016927 D : right tibia #4 Microbiology Wound, Intra-Operative ANAEROBIC CULTURE Breezy Key MD 09/14/2016927 E : right tibia #5 Microbiology Wound, Intra-Operative ANAEROBIC CULTURE Breezy Key MD 09/14/2016927 F : right tibia #6 Microbiology Wound, Intra-Operative ANAEROBIC CULTURE Breezy Key MD 09/14/2016927 Complications: None; patient tolerated the procedure well. Condition: PACU - hemodynamically stable. Return to the OR planned in the next 30 days? Yes Readmission planned in the next 30 days? No BMI=47.19 kg/(m^2) (as of 09/11/16) Operative Report Completion Pre-op Diagnosis: * Post-operative infection [T81.4XXA] Post-op Diagnosis: Same Procedure: Excisional debridement of 13x3 cm wound including bone, muscle, subcutaneus tissue and skin Placement of antibiotic beads Indications/Procedure Details: Miko Aguero is a 56 y.o. male with a history of R BKA with surgical site infection.We had a discussion with the patient regarding the risks and benefits of proceeding with surgery including the risk of infection, bleeding, injury to local structures including neurovascular structures, continued pain, non-union or hardware failure, heart attack, stroke, . Patient elected to proceed and signed informed surgical consent. The patient was identified on the floor. The operative extremity was marked.His consent was reviewed. He was brought by the anesthesia team the operative suite and placed supine on the operating table and all pertinent bony prominences were padded. General anesthesia was induced. His right leg was prepped and draped in the normal sterile fashion. Antibiotics were given. A multidisciplinary timeout was called and all in attendance were in agreement that we had the correct patient, site, side, and procedure. We then began the operation. The prior sutures were removed and prior surgical site was sharply incised with scalpel.Suture material was removed as it was encountered.A large medial pocket of purulent fluid as well as fluid about the distal tibia was evacuated.Necrotic skin, subQ, muscle, and bone were excised with a knife.Six cultures were obtained including bony sample (Culutre #6).The wound was then irrigated with 9L sterile NS. The wound was packed with 8 antibiotic beads on a single suture string with vancomycin and tobramycin.The wound was then covered with a Wound Vac and adequate seal was achieved. The patient was awakened from anesthesia without event and transferred to the PACU in stable condition. Plan: Return to OR in 2 days for repeat irrigation and debridement and definitive closure.NWB RLE, with VAC in place. Disposition: Admitted Attending Attestation: Breezy Key MD was present for the entire procedure. Bela Hudson MD ERYTHROCYTE SEDIMENTATION RATE (09/17/2016 4:38 AM)Only the most recent of2 resultswithin the time period is included. Component Value Range ESR (Erythrocyte Sedimentation Rate) 89(H) 0-15 mm/Hr Specimen Whole Blood C-REACTIVE PROTEIN (09/17/2016 4:38 AM)Only the most recent of2 resultswithin the time period is included. Component Value Range CRP (C-Reactive Protein) 7.4(H) <=0.5 mg/dL Specimen Blood ECG - EKG 12 LEAD (09/16/2016 11:27 PM)Only the most recent of3 resultswithin the time period is included. Component Value Range ECG SEVERITY - NORMAL ECG - VENT. RATE 91 bpm RR 659 ms P-R INTERVAL 180 ms QRSD INTERVAL 98 ms QT INTERVAL 360 ms QTC INTERVAL 443 ms P AXIS 61 degrees QRS AXIS 83 degrees T WAVE AXIS 32 degrees REPORT SINUS RHYTHM [Remains] SIGNIFICANT RATE INCREASE NO SIGNIFICANT CHANGE Interpreting Physician: Sav Diaz MD POTASSIUM-URINE,RANDOM (09/16/2016 9:12 PM) Component Value Range Potassium, Urine, Random 26.2 mEq/L Specimen Urine OSMOLALITY-URINE (09/16/2016 9:12 PM) Component Value Range Osmolality-Urine [phone] mOsm/k Specimen Urine HEMATOCRIT (09/16/2016 8:03 PM)Only the most recent of7 resultswithin the time period is included. Component Value Range Hematocrit 25(L) 40-52 % Specimen Whole Blood HEMOGLOBIN (09/16/2016 8:03 PM)Only the most recent of7 resultswithin the time period is included. Component Value Range Hemoglobin 8.0(L) 13.2-17.7 g/dL Specimen Whole Blood OSMOLALITY, PLASMA (09/16/2016 8:03 PM) Component Value Range Osmolality, Plasma 300 280-300 mOsm/kg Specimen Blood RED BLOOD CELLS DISPENSE FROM BLOOD BANK (09/16/2016 3:16 PM) Component Value Range Blood Coding System [id number] Blood Product Volume 325 Blood Product ABORH A Pos Blood Unit Number [id number] BLOOD DISPENSE STATUS ISS Blood Product Type Red Blood Cells Blood Product Code [id number] CHEST - AP/PA (09/16/2016 10:45 AM) Impressions Findings / Impression: Left upper extremity PICC terminates in the SVC. Asymmetric elevation of the right hemidiaphragm. Bibasilar atelectasis. Otherwise, no focal airspace disease. Mildly enlarged cardiac mediastinal silhouette. Pulmonary vasculature is normal given exam technique. Narrative Procedure: CHEST - AP/PA Technique: Portable AP chest radiograph Comparison: None Clinical Indication: Evaluate PICC Procedure Note Jeferson, Incoming Imaging Results - WedSep 16, 2016 3:39 PM CDT Procedure: CHEST - AP/PA Technique: Portable AP chest radiograph Comparison: None Clinical Indication: Evaluate PICC IMPRESSION Findings / Impression: Left upper extremity PICC terminates in the SVC. Asymmetric elevation of the right hemidiaphragm. Bibasilar atelectasis. Otherwise, no focal airspace disease. Mildly enlarged cardiac mediastinal silhouette. Pulmonary vasculature is normal given exam technique. GLUCOSE (CRITICAL CARE LABORATORY) (09/16/2016 9:25 AM) Component Value Range Glucose, Whole Blood 156(H) 65-99 mg/dL Specimen Whole Blood POTASSIUM (CRITICAL CARE LABORATORY) (09/16/2016 9:25 AM)Only the most recent of2 resultswithin the time period is included. Component Value Range Potassium, Whole Blood 5.7(H)Comment: 3.5-5.0 mEq/L Sample run on whole blood.Hemolysis is not measured. Specimen Whole Blood HEMOGLOBIN& CALCULATED HEMATOCRIT - (CRITICAL CARE LABORATORY) (09/16/2016 9: 25 AM) Component Value Range Hemoglobin - CCL 7.7(L) 13.2-17.7 g/dL Hematocrit (Calc) - CCL 24(L) 40-52 % Specimen Whole Blood AEROBIC CULTURE, ROUTINE (09/16/2016 9:01 AM)Only the most recent of11 resultswithin the time period is included. Component Value Range Culture Rare Enterobacter cloacae complex(A)Comment:Susceptibility testing was not performed. See for susceptibility of same isolate(s). For further details, call [phone]. Gram Stain No organisms observed Gram Stain Rare PMN's Specimen Microbiology - Tissue, specify Narrative Identification performed by MALDI-TOF mass spectrometry (MS).The performance characteristics of MALDI-TOF MS were determined by the [facility].It has not been cleared orApproved by the FDA. The FDA has determined that such clearance or approval is not necessary.This test is for clinical purposes. It should not be regarded as investigational or for research.The laboratory is certified under the Clinical Laboratory Improvement Amendments of 1988 (CLIA) as qualified to perform high complexity clinical laboratory testing. ANAEROBIC CULTURE (09/16/2016 9:01 AM)Only the most recent of11 resultswithin the time period is included. Component Value Range Anaerobic culture growth No anaerobic organisms isolated Specimen Microbiology - Tissue, specify TYPE AND SCREEN (BLOOD TYPE(ABORH) AND RBC ANTIBODY SCREEN) (09/16/2016 6:29 AM )Only the most recent of3 resultswithin the time period is included. Component Value Range ABORH A Positive Specimen Expiration Date 2016-09-19 Antibody Screen Negative Specimen Blood VANCOMYCIN DRUG LEVEL (09/15/2016 5:30 PM) Component Value Range Vancomycin Drug Level 23.6 0.0-40.0 g/mL Specimen Blood VITAMIN D, 25-HYDROXY (09/15/2016 5:30 PM) Component Value Range Vitamin D, 25-OH <5(L)Comment: 20-80 ng/mL This assay accurately quantifies the sum of 25-hydroxyvitamin D3 and 25- hydroxyvitamin D2. Endocrine Society, [place] of [employer] (IOM), and World Health Organization (WHO) guidelines designate 25-h ydroxyvitamin D plasma concentrations below 20 ng/mL as deficient, based on increased frequency of adverse outcomes (e.g., osteoporotic fractures). 25-Hydroxyvitamin D reference ranges are a controversial topic, with some authorities suggesting optimal concentrations should be 30 ng/mL or higher based on correlations of 25-hydroxyvitamin D plasma concentrations with physiological parameters such as parathyroid hormone or calcium concentrations. However, optimal 25-hydroxyvitamin D concentrations greater than 20 ng/mL may be considered for specific disease conditions. Vitamin D toxicity is uncommon but may be seen at 25-hydroxyvitamin D concentrations greater than 150 ng/mL. Specimen Blood MARKETING DATABASE COORDINATOR PICC LINE (ONLY ORDERED BY PICC TEAM) (09/15/2016 3:34 PM)URINALYSIS ( 09/15/2016 1:49 PM) Component Value Range Color, Urine Yellow Straw, Pale Yellow, Yellow, Clear, None Clarity, Urine Clear Clear pH, Urine 5.0 <9.0 Glucose, Urine Negative Negative Blood, Urine Negative Negative Ketones, Urine Negative Negative Protein, Urine Negative Negative Urobilinogen, Urine Normal Normal Bilirubin, Urine Negative Negative Leukocyte Esterase, Urine Negative Negative Nitrite, Urine Negative Negative Spec Surveyor, Urine 1.015 1.000-1.030 Specimen Urine CREATININE-URINE, RANDOM (09/15/2016 1:49 PM) Component Value Range Creatinine, Urine, Random 150.7 mg/dL Specimen Urine SODIUM-URINE,RANDOM (09/15/2016 1:49 PM) Component Value Range Sodium, Urine, Random 41 mEq/L Specimen Urine PICC LINE REQUEST (09/15/2016 1:26 PM) Stacey Garland RN 09/15/20161:26 PM Procedure PICC Line Insertion, 09/15/2016 Consent for Procedure The procedure was explained to the patient and including risks and benefits.Patient signed consent form and wishes to proceed. A time out was performed at bedside. Location: Patient room Description of Procedure The collating machine operator performed proper hand hygiene and utilized maximum sterile barrier precautions. The patient's skin was prepped with CHG and draped with a large body drape in the usual sterile fashion.Using ultrasound guidance, the left cephalic vein was identified and assessed for patency.3 cc's of 1% lidocaine was injected into the skin.Using the Seldinger technique and ultrasound guidance, the vein was entered with a 21 gauge micropuncture needle and the wire threaded into the vein.A 45 cm 5 Fr double lumen Bard Power PICC SOLO catheter (Lot number [id number]) was inserted into the tear-away sheath.Blood was aspirated from both lumens and the catheter was easily flushed with saline, secured into place at the 19 cm hash luís (where flushes/draws easily), and dressed with a sterile CHG tegaderm. MIDLINE PICC line is ready for use as peripheral access only until repositioned in the collaborative physician.Procedure was successful at bedside. Complications There were no immediate complications. Staff Stacey Ariza RN-BSN Nurse Clinical Specialist PICC Service MRSA/SA PCR (09/13/2016 8:10 PM) Component Value Range MRSA by PCR Negative Negative S. AUREUS by PCR NegativeComment:Negative for SA Negative Specimen Nasal Swab (MRSA) - Nasal Swab Narrative Test methodology:PCR amplification; Xpert SA Test ([employer]) CBC (COMPLETE BLOOD COUNT) (09/11/2016 1:11 PM) Component Value Range WBC Count 8.3 3.7-10.5 K/MM3 RBC Count 3.68(L) 4.50-6.20 M/MM3 Hemoglobin 10.6(L) 13.2-17.7 g/dL Hematocrit 34(L) 40-52 % MCV (Mean Corpuscular Volume) 91 82-99 FL MCH (Mean Corpuscular Hemoglobin) 29 25-35 PG MCHC (Mean Corpuscular Hemoglobin Concentration) 32 32-36 % Platelet Count 434(H) 150-400 K/MM3 MPV (Mean Platelet Volume) 8.9(L) 9.4-12.3 FL RBC Dist Width-STD 44.7(H) 35.1-43.9 FL RBC Distrib Width 13.4 9.0-14.5 % Nucleated RBC 0 /100 WBC Specimen Whole Blood ORT OR CASE (09/09/2016 4:58 PM) Narrative Breezy Key MD 09/09/20164:58 PM OR CASE: AMPUTATION LEG REVISION Post-Op Procedure Note Operation/Procedure: Procedure(s) (LRB): AMPUTATION LEG REVISION (Right) General Information: Date: 09/04/16 Time: 1600 Location: MAIN OR OR Room: [place] [address] Service: Orthopaedics Log ID: [id number] Surgeon: Surgeon(s) and Role: * Breezy Key MD - Primary * Bela Hudson MD - Resident - Assisting * Ricky Li MD - Resident - Assisting Staff Information: Scrub Nurse: Erin Garcia, graphic production artist Nurse: Angelica Gaytan RN; Erin Garcia, DEYVI; Elin Vargas RN Laundry Equipment Operator- Scrub: Prachi Ko Anesthesia: General with Block for Postop Pain Findings: No unexpected findings, see below. Blood Loss: less than 50 ml Implants: * No implants in log * Specimens: ID Type Source Tests Collected by Time Destination A : Right BKA stump #1 Microbiology Tissue, specify ANAEROBIC CULTURE, AEROBIC CULTURE, ROUTINE Breezy Key MD 09/04/2016 6417 B : Right BKA stump #2 Microbiology Tissue, specify ANAEROBIC CULTURE, AEROBIC CULTURE, ROUTINE Breezy Key MD 09/04/2016 317 C : Right BKA stump #3 Microbiology Tissue, specify ANAEROBIC CULTURE, AEROBIC CULTURE, ROUTINE Breezy Key MD 09/04/2016 1840 Complications: None; patient tolerated the procedure well. Condition: PACU - hemodynamically stable. Return to the OR planned in the next 30 days? No Readmission planned in the next 30 days? No BMI=42.84 kg/(m^2) Operative Report Completion Pre-op Diagnosis: * Hx of right BKA [Z89.511] Post-op Diagnosis: Right BKA wound dehiscence with contamination Procedure: 1. Revision below knee amputation at about 10 cm distal to the tibial tubercle (medium) Indications/Procedure Details: Miko Aguero is a 56 y.o. male who returns due to right BKA incision site dehiscence. He underwent BKA on 07/22/2016 for right Charcot foot and chronic midfoot infection with skin breakdown. He was seen 08/19/2016 and started on Keflex. He has been doing dry dressings daily. He continues to have drainage from the incision with evidence of wound dehiscence and palpable anterior tibia through wound. We had a discussion with the patient regarding the risks and benefits of proceeding with surgery including the risk of infection, bleeding, injury to local structures including neurovascular structures, continued pain, non-union or hardware failure, heart attack, stroke, . Patient elected to proceed and signed informed surgical consent. The patient was identified in the preoperative holding area. The operative site was marked. His H&P was updated. His consent was reviewed. He was brought by the anesthesia team the operative suite and placed supine on the operating table and all pertinent bony prominences were padded. General anesthesia was induced. His right leg was prepped and draped in the normal sterile fashion. Antibiotics were given. A multidisciplinary timeout was called and all in attendance were in agreement that we had the correct patient, site, side, and procedure. We then began the operation. Eschar was debrided about the skin surrounding the prior surgical site and prior Vicryl suture was removed as it was encountered. The wound was contaminated but there was not evidence of purulence or gross infection.All non-viable tissue was removed by sharp dissection and rongeur.The remaining tissue was debrided with curette.Three tissue samples were sent to microbiology for culture.The wound was then irrigated with 2L of normal saline. The distal tibia was then prepared using a martinez to strip the periosteum from the distal portion of the bone.The tibia was then cut approximately 2 cm proximal to the prior osteotomy site. All edges were shaped using the saw and care was taken to smooth the anterior tibia.The wound was irrigated with 2 additional liters of normal saline.The tourniquet was let down at 18 minutes and satisfactory hemostasis was achieved by cauterization. A 2.0 drill was used to create holes in the anteromedial and anterolateral tibia.Tendon was approximated to bone using these drill holes using 0 PDS. Deep fascia was approximated with 1 PDS, and skin was closed using 2-0 prolene.A dressing was placed using Xeroform, 4x4w, Kerlix, and 6" Hamilton wrap. PLAN: -NWB RLE -Soft dressing -Transition to FloTec tomorrow -Follow up in 1 week for wound check -Continue outpatient PO Keflex until that time Disposition: 23 hour recovery Attending Attestation: Breezy Key MD was present for zarco portions of the procedure defined as wound inspection and tibia bone cut inspection, and was immediately available for the remainder of the procedure. Bela Hudson MD BLOOD UREA NITROGEN (09/05/2016 8:22 AM) Component Value Range BUN 19 10-20 mg/dL Specimen Blood CO2 (09/05/2016 8:22 AM) Component Value Range CO2 26 22-29 mEq/L Anion Gap 14 8-18 mEq/L Specimen Blood CHLORIDE (09/05/2016 8:22 AM) Component Value Range Chloride 96 95-107 mEq/L Specimen Blood SODIUM (09/05/2016 8:22 AM) Component Value Range Sodium 136 135-145 mEq/L Specimen Blood PERIPHERAL NERVE BLOCK (09/04/2016 4:23 PM)Only the most recent of4 resultswithin the time period is included. Narrative Surekha Terry MD 09/04/20164:23 PM Procedure: Popliteal Pre-Procedure Block Performed: Pre-op Indication: Post-op Analgesia Pre-Procedure Vitals HR:77 Blood pressure:113/74 SpO2:96 VAS Score:0 Procedure Laterality: Right Position: LLD Preparation: ChlorPrep and Sterile Drape/Gloves Technique: Ultrasound guided US used to identify nerve/real time visualization of needle placement & local anesthetic injection & US image captured: Yes Type: Single-Shot Needle: StimuQuik Length: 90 mm Narrative Test Dose: Negative Blood aspirated: No Resistance on injection: Normal Pain on injection: No Paresthesia on injection: No Ease of block performance: Straight forward Start time: 09/04/2016 3:55 PM End time: 09/04/2016 4:04 PM Events: no other event Success: A full eval is pending Post-Procedure Vitals HR: 75 Blood pressure: 98/57 SpO2: 98 VAS score: 0 Performed by Anesthesiologist: TEA COLEMAN Fellow/Resident: SUREKHA TERRY Procedure: Saphenous Pre-Procedure Block Performed: Pre-op Indication: Post-op Analgesia Pre-Procedure Vitals HR:78 Blood pressure:128/78 SpO2:98 VAS Score:0 Procedure Laterality: Right Position: Supine Preparation: ChlorPrep and Sterile Drape/Gloves Technique: Ultrasound guided US used to identify nerve/real time visualization of needle placement & local anesthetic injection & US image captured: Yes Type: Single-Shot Needle: StimuQuik Length: 90 mm Narrative Test Dose: Negative Blood aspirated: No Resistance on injection: Normal Pain on injection: No Paresthesia on injection: No Ease of block performance: Straight forward Start time: 09/04/2016 4:10 PM End time: 09/04/2016 4:14 PM Events: no other event Success: A full eval is pending Post-Procedure Vitals HR: 75 Blood pressure: 128/72 SpO2: 98 VAS score: 0 Performed by Anesthesiologist: TEA COLEMAN Fellow/Resident: SUREKHA TERRY OR CASE (07/22/2016 5:56 AM) Narrative Breezy Key MD 07/22/20165:56 AM OR CASE: AMPUTATION LEG BELOW KNEE Post-Op Procedure Note Operation/Procedure: Procedure(s) (LRB): AMPUTATION LEG BELOW KNEE (Right) General Information: Date: 07/21/16 Time: 814 Location: MAIN OR OR Room: MAIN OR Service: Orthopaedics Log ID: [id number] Surgeon: Surgeon(s) and Role: * Breezy Key MD - Primary * Dieter Mix MD - Resident - Assisting Staff Information: Circulating Nurse: Katharine Sapp RN; Kaylin Crawford RN Laundry Equipment Operator- Scrub: Marissa Neumann Anesthesia: General with Block for Postop Pain Findings: No unexpected findings, see below. Blood Loss: less than 100 ml Implants: * No implants in log * Specimens: ID Type Source Tests Collected by Time Destination 1 : R leg BKA Surgical Pathology Surgical Pathology Specimen SURGICAL PATHOLOGY EXAM Breezy Key MD 07/21/2016 0918 Complications: None; patient tolerated the procedure well. Condition: PACU - hemodynamically stable. Return to the OR planned in the next 30 days? No Readmission planned in the next 30 days? No BMI=47.84 kg/(m^2) (as of 07/14/16) Operative Report Completion Pre-op Diagnosis: * Musculoskeletal leg pain, right [M79.604] Post-op Diagnosis: R charcot foot with large plantar wound and osteomyelitis Procedure: 1.Below knee amputation through the tibia diaphysis 11cm distal to the tibial tubercle. Indications/Procedure Details: Mr. Aguero is a 56-year-old diabetic male with right Charcot foot and chronic midfoot infection with large plantar wound who was indicated for right below-knee amputation.All risks and benefits of the procedure including damage to nerves and blood vessels, infection, inability to heal wound, damage to heart, damage to lungs, blood clots, stroke, and were described to the patient and the patient subsequently signed surgical consent. DESCRIPTION OF OPERATION/PROCEDURE: Mr. Aguero was brought to the operating room and appropriate preinduction timeout was performed.We then placed the patient supine on the operating table, taking care to pad all bony prominences.We then sterilely prepped and draped the patient in normal fashion.An appropriate preoperative timeout was then performed identifying the appropriate patient and operative right lower extremity. We then marked an incision 1 handbreadth approximately 10 cm distal to the tibial tubercle anteriorly.We then measured the circumference of the leg divided it in half and subsequently made our medial and lateral posterior flaps with this measurement.We subsequently inflated the tourniquet to 275 mmHg.We then made a sharp incision both medially and laterally.We dissected down to the fascia.We then utilized a hemostat and Martinez elevators to localize the anterior compartment musculature which we used electrocautery to dissect.We subsequently elevated the periosteum about the tibia and made our tibial bone cut with the saw.We then localized the fibula and made our bone cut.We subsequently used an amputation knife to remove the distal specimen.We then dissected out the posterior deep compartment musculature, realizing a healthy posterior superficial compartment with fascial layer intact.We subsequently used 2-0 silk ties on hemostat to tie off both the posterior tibial knee, anterior tibial vasculature.We subsequently dissected out the nerves both anteriorly and posteriorly and dissected these proximally.We transected these sharply.We then let the tourniquet down at 21 minutes, packed the wound and utilized electrocautery to stop any bleeding.There was minimal bleeding present.We then utilized Vicryl suture to tack back the posterior flap to the periosteum of the tibia and closed with a deep layer a subdermal layer and subsequent superficial layer with Prolene and pauline. The patient will be placed in a soft dressing with subsequent Flotec to be placed.Pain Service is following with catheter. Disposition: Admitted Attending Attestation: Breezy Key MD was present for the amputation and deep closure. Dieter Mix MD SURGICAL PATHOLOGY EXAM (07/21/2016 9:18 AM) Component Value Range Case Report Surgical Pathology Case: [id number] Authorizing Provider:Breezy Key MDCollected: 07/21/2016 09:18 AM Ordering Location: Main OR Received:07/21/2016 09:32 AM Pathologist: Keshia Molina MD Specimen:Leg, right, BKA Diagnosis Right leg, below knee amputation: Plantar skin with granulation tissue consistent with an ulcer. Mild atherosclerotic stenosis of tibial arteries. Bone resection margin viable and free of osteomyelitis. I have personally reviewed this case and edited the report as necessary. Gross Description Received fresh labeled with Miko Laci, hospital number, and "R leg BKA" is a below knee amputation of a right leg, measuring 27.5 cm heel to tip of big toe, 15.0 cm heel to nearest surgical resect ion margin, and 32.2 cm heel to furthest surgical resection margin with up to 18.5 cm of exposed fibula and 15.0 cm of exposed tibia. Five intact toes are present.There is a 3.0 x 1.8 cm irreg ular, vizcaino-white, ragged ulcer on the plantar aspect of the foot, 21.0 cm from the nearest surgical resection margin.The underlying bone is smooth, vizcaino-yellow and hard.The remaining skin is smo oth, vizcaino and grossly unremarkable. Dissection of anterior and posterior tibial arteries reveals up to 20% stenosis by atheromatous plaques. Sections submitted: A1:skin and soft tissue margin A2:anterior tibial artery A3:posterior tibial artery A4:bone marrow margin, following decalcification A5:ulcer to bone, following decalcification ATC/tkr Microscopic Description Microscopic examination performed and supports the diagnosis. CMS Specimen Surgical Pathology - Leg
== END 2016-09-24 15:30 | disposition home or self-care (01) ==
LOC: ER 15:14
DX: Z53.21 Procedure and treatment not carried out due to patient leaving prior to being seen by health care provider (principal)